=== PATIENT | male | born 1990 | race Caucasian/White ===

== ENCOUNTER 2018-01-22 17:04 | Emergency (ER) | payer OTHER ==
--- NOTE | 2018-01-22 17:33 | ED Physician Documentation ---
PD HPI LOWER EXT INJURY - Stated complaint Stated Complaint: L KNEE INJ - Chief complaint Chief Complaint: Ext Problem - History obtained from History obtained from: Patient - History of Present Illness PD HPI LOW EXT INJURY LOCATION: Left, Knee Type of injury: Twist (he fell from skateboard and landed on foot, with valgus stress/pressure on the knee, felt abrupt pain at medial knee. Did not impact it. Pain with ROM and walking.) Where injury occurred: Home Timing - onset: Today Timing - details: Abrupt onset, Still present Improved by: Rest Worsened by: Moving, Palpating, Other (weight bearing) Associated symptoms: Swelling. No: Weakness, Numbness Similar symptoms before: Has not had sx before Recently seen: Not recently seen Review of Systems Constitutional: denies: Fever, Chills Nose: denies: Rhinorrhea / runny nose, Congestion Throat: denies: Sore throat Cardiac: denies: Chest pain / pressure Respiratory: denies: Cough GI: denies: Abdominal Pain Musculoskeletal: reports: Joint pain (left knee only). denies: Neck pain, Back pain PD PAST MEDICAL HISTORY - Past Medical History Past Medical History: No Musculoskeletal: None - Past Surgical History Past Surgical History: No - Present Medications Home Medications: Ambulatory Orders Medication Instructions Recorded Confirmed HYDROcod/ACETAM 5/325 [[place] 5/325] 1 tab PO Q6H PRN #15 tablet 01/22/18 Ibuprofen [Motrin] 600 mg PO TID #30 tab 01/22/18 - Allergies Allergies/Adverse Reactions: Allergies Allergy/AdvReac Type Severity Reaction Status Date / Time No Known Drug Allergies Allergy Verified 01/22/18 17:12 - Social History Does the pt smoke?: No Smoking Status: Former smoker Does the pt drink ETOH?: Yes Does the pt have substance abuse?: No - Immunizations Immunizations are current?: Yes PD ED PE NORMAL - Vitals Vital signs reviewed: Yes - General General: Alert and oriented X 3, Well developed/nourished - Back Back: No spinal TTP - Derm Derm: Normal color, Warm and dry - Extremities Extremities: Other (left knee with mild effusion, mostlymedially. Cruciate testing without pain. Some tenderness posterior knee. Collateral testing painful with valgus and might be some widening but limited due to pain. Not grossly loose. No pain with meniscal pressure. ) - Neuro Neuro: Alert and oriented X 3, No motor deficit, No sensory deficit, Normal speech Results - Vitals Vitals: Vital Signs - 24 hr 01/22/18 01/22/18 17:10 18:54 Temperature 36.7 C 36.7 C Heart Rate 96 85 Respiratory 16 16 Rate Blood Pressure 138/88 H 135/84 H O2 Saturation 100 97 Oxygen O2 Source Room air - Rads (name of study) left knee Radiology: Prelim report reviewed (small effusion. No fractures. ), EMP read contemporaneously PD MEDICAL DECISION MAKING - ED course Complexity details: considered differential (likely torn MCL but not gross laxity (limited due to pain). Mild effusion. Does not feel like concurrent ACL. ), d/w patient - Sepsis Event Vital Signs: Vital Signs - 24 hr 01/22/18 01/22/18 17:10 18:54 Temperature 36.7 C 36.7 C Heart Rate 96 85 Respiratory 16 16 Rate Blood Pressure 138/88 H 135/84 H O2 Saturation 100 97 Oxygen O2 Source Room air Departure - Departure Disposition: 01 Home, Self Care Clinical Impression: Knee injury Qualifiers: Encounter type: initial encounter Laterality: left Qualified Code(s): S89.92XA - Unspecified injury of left lower leg, initial encounter Knee MCL sprain Qualifiers: Encounter type: initial encounter Laterality: left Qualified Code(s): S83.412A - Sprain of medial collateral ligament of left knee, initial encounter Condition: Stable Record reviewed to determine appropriate education?: Yes Instructions: ED Sprain Knee Collateral Ligaments Follow-Up: [facility] [Provider Group] Prescriptions: HYDROcod/ACETAM 5/325 [[place] 5/325] 1 tab PO Q6H PRN #15 tablet PRN Reason: Pain Ibuprofen [Motrin] 600 mg PO TID #30 tab Comments: Use a knee brace when up and around for the next week or 2 until follow-up. Likely will you will need it for 3-4 weeks. Use crutches as needed for the discomfort of weightbearing. It is okay to have some partial weightbearing. Use some ibuprofen 3 times a day and add Tylenol or hydrocodone if needed for pain. This will likely swell a little bit more tonight into tomorrow. Elevate ice and rest your knee often today and tomorrow. Call your primary care to set up an appointment for a few days to week from now with your primary care or orthopedics. This sounds likely to be an MCL strain and possible tear. This is commonly treated conservatively with a knee brace and time for it to heal rather than surgically will be good to see how stable it is in the first week or so. Forms: Activity restrictions Discharge Date/Time: 01/22/18 18:54
[2018-01-22] MEDS: HYDROcod/ACETAM 5/325 MG TABLET PO STA (17:50)
[2018-01-22] MEDS: IBUPROFEN 600 MG TABLET PO STA (17:50)
--- NOTE | 2018-01-22 18:31 | XRAY Report ---
Procedure Date: 01/22/2018 Accession Number: [id number] / [id number] Procedure: XR - Knee 4 View LT CPT Code: FULL RESULT: EXAM: LEFT KNEE RADIOGRAPHY EXAM DATE: 01/22/2018 06:13 PM. CLINICAL HISTORY: Fall with twisting injury. Medial knee pain. Unable to extend leg. COMPARISON: None. TECHNIQUE: 4 views. FINDINGS: Bones: Normal. No fractures or bone lesions. Joints: Moderate effusion. Joint compartments normal caliber without bony reactive changes. Soft Tissues: Normal. No soft tissue swelling. IMPRESSION: Moderate effusion. [facility]
[2018-01-22 18:56] VITALS: BP 135/84
== END 2018-01-22 18:54 | disposition home or self-care (01) ==
LOC: ED 17:04
DX: S89.92XA Unspecified injury of left lower leg, initial encounter (principal); S83.412A Sprain of medial collateral ligament of left knee, initial encounter; X50.9XXA Other and unspecified overexertion or strenuous movements or postures, initial encounter; Y93.51 Activity, roller skating (inline) and skateboarding; Z87.891 Personal history of nicotine dependence
CPT/HCPCS: 29530; 73564; 99283; A9270

== ENCOUNTER 2018-02-18 08:46 | Outpatient (CLI) | payer OTHER ==
--- NOTE | 2018-02-18 18:30 | MRI Report ---
Procedure Date: 02/18/2018 Accession Number: [id number] / [id number] Procedure: MRI - Knee LT W/O CPT Code: FULL RESULT: EXAM: LEFT KNEE MRI WITHOUT CONTRAST EXAM DATE: 02/18/2018 09:34 AM. CLINICAL HISTORY: Unspecified injury of unspecified lower leg. COMPARISON: Radiographs 01/22/2018. TECHNIQUE: Multiplanar, multisequence T1-weighted and fluid-sensitive sequences of the knee without contrast. Other: None. FINDINGS: Bones: Mild impaction fractures anterior aspect lateral femoral condyle and posterior margin lateral femoral condyle. Subtle impaction fracture anterior aspect medial femoral condyle and posterior margin medial tibial plateau. Subtle bone marrow edema at the fibular styloid. Serpiginous foci of signal abnormality in the medullary cavities of the distal femur and proximal tibia, suggestive of bone infarcts. Articular Cartilage: Unremarkable. Medial Meniscus: Ill-defined fluid-sensitive hyperintense signal along the posterior margin posterior horn at the junction with the capsule. Lateral Meniscus: Peripheral vertical tear posterior margin posterior horn. Cruciate Ligaments: Complete disruption midsubstance anterior cruciate ligament. No discernible intact fibers. Posterior cruciate ligament intact. Collateral Ligaments: Mild thickening and adjacent edema at the proximal aspect superficial band medial collateral ligament. Subtle partial-thickness tearing at the anterior third of the proximal fibers. Diffuse distortion of the deep meniscofemoral band. Mild thickening and adjacent edema at the intact proximal aspect lateral collateral ligament. Tendons: The quadriceps, patellar, semimembranosus, and popliteus tendons are unremarkable. Musculature: No fatty atrophy. Minimal edema in the vastus lateralis and popliteus muscles. Other: Large joint effusion with synovitis. Minimal popliteal cyst. No loose bodies. Distortion and fluid-sensitive hyperintense signal at the femoral insertion medial retinaculum and medial patellofemoral ligament. Mild subcutaneous edema over the anterior aspect of the knee. Mild reactive edema in the anterior fat pads. IMPRESSION: 1. Complete disruption anterior cruciate ligament. 2. Grade 2 sprain medial collateral ligament with partial-thickness tearing of the superficial and possibly deep bands. 3. Grade 1 sprain lateral collateral ligament. 4. Peripheral vertical tear posterior horn lateral meniscus. 5. Meniscocapsular sprain versus partial-thickness separation at the posterior margin posterior horn medial meniscus. 6. Large joint effusion with synovitis. 7. Mild impaction fractures lateral femoral condyle and lateral tibial plateau and to a lesser extent medial femoral condyle and medial tibial plateau. 8. Contusion versus reactive edema at the fibular styloid. 9. 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 [facility] MUSCULOSKELETAL RADIOLOGY SECTION
== END 2018-02-18 08:47 | disposition home or self-care (01) ==
LOC: DI 08:46
PROVIDERS: ATTEND Student in an Organized Health Care Education/Training Program
DX: S83.512A Sprain of anterior cruciate ligament of left knee, initial encounter (principal); S83.412A Sprain of medial collateral ligament of left knee, initial encounter; S83.422A Sprain of lateral collateral ligament of left knee, initial encounter; S83.242A Other tear of medial meniscus, current injury, left knee, initial encounter